=== PATIENT | female | born 1965 | race Hispanic/Latino ===

== ENCOUNTER → 2018-07-13 | Outpatient (CLI) | payer BC | END | disposition home or self-care (01) | LOC: RAH 12:29 | PROVIDERS: ATTEND Orthopaedic Surgery | DX: S83.241A Other tear of medial meniscus, current injury, right knee, initial encounter (principal); X58.XXXA Exposure to other specified factors, initial encounter; Y93.89 Activity, other specified; Y92.89 Other specified places as the place of occurrence of the external cause; Y99.8 Other external cause status | CPT/HCPCS: 73721 ==

== ENCOUNTER 2018-08-09 06:06 | Day surgery (SDC) | payer BC ==
[2018-08-08 15:47] VITALS: BP 114/72
[2018-08-09] VITALS (14 sets, daily range): BP systolic 107–121; BP diastolic 60–71
[~2018-08-09] VITALS: Ht 163.8 cm; Wt 94.0 kg
[~2018-08-09 06:06] MED LIST: FENO145T37 PO; JULUCA PO; OMEP40CA37 PO; PRAV10TA39 PO; [UNRECOGNIZED DRUG - OTHER] PO
[2018-08-09] MEDS ORDERED: CLINDAMYCIN 900 MG/D5% WATER 50 ML IV ONE (06:57)
[2018-08-09] MEDS ORDERED: LACTATED RINGERS 1000ML 1,000 ML IV ONE (06:57)
[2018-08-09] MEDS ORDERED: LIDOCAINE PF 2% 5ML ABBOJECT ONE (08:23)
[2018-08-09] MEDS ORDERED: PROPOFOL 10 MG/ML 20ML VIAL IV ONE (08:24)
[2018-08-09] MEDS ORDERED: FENTANYL CITRATE PF 50 MCG/1 ML 2ML VIAL ONE (08:24)
[2018-08-09] MEDS ORDERED: PROMETHAZINE HCL 25 MG/ML 1ML AMPULE IM ONE (09:38)
[2018-08-09] MEDS ORDERED: MEPERIDINE-PF 25 MG/ML SYG ONE (09:39)
[2018-08-09] MEDS ORDERED: CLIN300C3 PO (09:50)
[2018-08-09] MEDS ORDERED: TYL3 PO (09:50)
== END 2018-08-09 11:20 | disposition home or self-care (01) ==
LOC: DAH 06:06
PROVIDERS: ATTEND Orthopaedic Surgery
DX: M23.211 Derangement of anterior horn of medial meniscus due to old tear or injury, right knee (principal); M23.221 Derangement of posterior horn of medial meniscus due to old tear or injury, right knee; M94.261 Chondromalacia, right knee; Z88.0 Allergy status to penicillin; Z88.8 Allergy status to other drugs, medicaments and biological substances; M06.9 Rheumatoid arthritis, unspecified; E78.00 Pure hypercholesterolemia, unspecified; Z68.36 Body mass index [BMI] 36.0-36.9, adult; Z79.899 Other long term (current) drug therapy; F41.9 Anxiety disorder, unspecified; M19.90 Unspecified osteoarthritis, unspecified site; B20 Human immunodeficiency virus [HIV] disease; M79.7 Fibromyalgia; G89.29 Other chronic pain; K21.9 Gastro-esophageal reflux disease without esophagitis; Z98.890 Other specified postprocedural states
CPT/HCPCS: 29881; A4606; A4649 ×2; A4930; A6223; J2001; J2175; J2550; J2704; J3010; J3490; J7120